=== PATIENT | male | born 1960 ===

== ENCOUNTER 2023-07-25 15:03 | Outpatient (CLI) | payer BC, OTHER | END 2023-07-25 15:04 | disposition home or self-care (01) | LOC: CSHWCC 15:03 | PROVIDERS: ATTEND Nurse Practitioner Family | DX: S51.052D Open bite, left elbow, subsequent encounter (principal); E11.622 Type 2 diabetes mellitus with other skin ulcer | CPT/HCPCS: 11042; 97605 ==

== ENCOUNTER 2023-07-29 15:34 | Outpatient (CLI) | payer BC | END 2023-07-29 15:35 | disposition home or self-care (01) | LOC: CSHWCC 15:34 | PROVIDERS: ATTEND Nurse Practitioner Family | DX: S51.052D Open bite, left elbow, subsequent encounter (principal); E11.622 Type 2 diabetes mellitus with other skin ulcer; L98.499 Non-pressure chronic ulcer of skin of other sites with unspecified severity | CPT/HCPCS: 97607 ==

== ENCOUNTER 2023-08-08 15:30 | Outpatient (CLI) | payer BC | END 2023-08-08 15:31 | disposition home or self-care (01) | LOC: CSHWCC 15:30 | PROVIDERS: ATTEND Nurse Practitioner Family | DX: E11.622 Type 2 diabetes mellitus with other skin ulcer (principal); S51.052D Open bite, left elbow, subsequent encounter | CPT/HCPCS: 11042 ==

== ENCOUNTER 2023-08-15 14:55 | Outpatient (CLI) | payer OTHER | END 2023-08-15 14:56 | disposition home or self-care (01) | LOC: CSHWCC 14:55 | PROVIDERS: ATTEND Preventive Medicine Undersea and Hyperbaric Medicine | DX: S51.052D Open bite, left elbow, subsequent encounter (principal); E11.622 Type 2 diabetes mellitus with other skin ulcer; L98.499 Non-pressure chronic ulcer of skin of other sites with unspecified severity | CPT/HCPCS: 99212; G0463 ==